=== PATIENT | male | born 1970 | race Caucasian/White ===

== ENCOUNTER → 2020-03-28 | Outpatient (CLI) | payer MEDICARE, OTHER ==
[~2020-03-28] MED LIST: ALFUZOSIN HCL E10 MG PO; ASPIR-LOW81 MG PO; AVAPRO300 MG PO; AVODART0.5 MG PO; BENTYL 20MG TAB20 MG PO; ELIQUIS 2.5 MG2.5 MG PO; ELIQUIS2.5 MG PO; FLUTICASONE SPRAY; ISOSORBIDE MON120 MG PO; LIPITOR80 MG PO; LORTAB 7.5-3251 EACH PO; LYRICA150 MG PO; METHOCARBAMOL500 MG PO; NITROSTAT 0.40.4 MG SL; NORCO 10-325 T1 EACH PO; NORCO 7.5-3251 EACH PO; OMEPRAZOLE20 M1 PO; PERCOCET 7.5-31 EACH PO; PHENERGAN 12.12.5 M1 PO; PROTONIX 40 MG40 M1 PO; ZANTAC150 MG PO; ZETIA 10 MG TAB10 MG PO
[2020-03-28 13:15] LABS: HEMOGLOBIN 15.2 gm/dl (14.0-17.5); RED BLOOD COUNT 5.06 M/UL (4.20-5.50); WHITE BLOOD COUNT 6.3 K/UL (4.5-11.0)
[2020-03-28 13:33] LABS: BUN/CREATININE RATIO 19 (0-10)
== END ==
LOC: OPSV2 12:00 → EDSTATUS 12:00 → OPSV2 12:13
PROVIDERS: Orthopaedic Surgery
DX: Z01.818 Encounter for other preprocedural examination (principal); S83.512A Sprain of anterior cruciate ligament of left knee, initial encounter; R00.1 Bradycardia, unspecified
CPT/HCPCS: 80048; 81001; 85025; 87081; 93005

== ENCOUNTER → 2020-04-05 | Outpatient (CLI) | payer MEDICARE, OTHER ==
[2020-04-05 14:19] LABS: BUN/CREATININE RATIO 16 (0-10)
== END ==
LOC: LAB 13:18
PROVIDERS: Orthopaedic Surgery
DX: Z01.812 Encounter for preprocedural laboratory examination (principal)
CPT/HCPCS: 36415; 80048; 86850; 86900; 86901

== ENCOUNTER 2020-04-06 08:19 | Inpatient (IN) | payer MEDICARE, OTHER ==
[~2020-04-06] VITALS: Ht 175.3 cm; Wt 104.8 kg
[~2020-04-06 08:19] MED LIST changes: -ELIQUIS 2.5 MG2.5 MG PO; -PERCOCET 7.5-31 EACH PO
[2020-04-06] MEDS ORDERED: PERCOCET 7.5-31 EACH PO (14:49)
[2020-04-07 05:40] LABS: HEMOGLOBIN 12.2 gm/dl (14.0-17.5); RED BLOOD COUNT 4.04 M/UL (4.20-5.50); WHITE BLOOD COUNT 12.6 K/UL (4.5-11.0)
[2020-04-07 06:05] LABS: BUN/CREATININE RATIO 15 (0-10)
[2020-04-07] MEDS ORDERED: ELIQUIS 2.5 MG2.5 MG PO (11:28)
== END 2020-04-07 15:09 | disposition home or self-care (01) | DRG 468 ==
LOC: ZOBSOF 08:19 → M/S 16:27
PROVIDERS: ADMIT Orthopaedic Surgery
PROC: 0SRD0J9 Replacement of Left Knee Joint with Synthetic Substitute, Cemented, Open Approach (ICD-10-PCS; 2020-04-06)
PROC: 0SPD0JZ Removal of Synthetic Substitute from Left Knee Joint, Open Approach (ICD-10-PCS; principal; 2020-04-06 11:15)
DX: T84.023A Instability of internal left knee prosthesis, initial encounter (principal); S83.512A Sprain of anterior cruciate ligament of left knee, initial encounter; I25.10 Atherosclerotic heart disease of native coronary artery without angina pectoris; K21.9 Gastro-esophageal reflux disease without esophagitis; E78.5 Hyperlipidemia, unspecified; K44.9 Diaphragmatic hernia without obstruction or gangrene; M19.90 Unspecified osteoarthritis, unspecified site; M54.9 Dorsalgia, unspecified; F32.9 Major depressive disorder, single episode, unspecified; G62.9 Polyneuropathy, unspecified; I10 Essential (primary) hypertension; Z95.5 Presence of coronary angioplasty implant and graft
CPT/HCPCS: 36415; 73560; 80048; 85025; 86850; 86900; 86901; 97116-GP-CQ; 97161; 97166; 97535; C1713; C1776; J0171; J0690; J1100; J1170; J2001; J2405; J2704; J2710; J2795; J3370; J7120; U0003